=== PATIENT | female | born 1930 | race Caucasian/White ===

== ENCOUNTER → 2016-10-15 | Outpatient (CLI) | payer MEDICARE ==
--- NOTE | 2016-10-16 10:06 | MM ---
Reason for exam: screening (asymptomatic). Last mammogram was performed 1 year and 1 month ago. History: Patient is postmenopausal. Took estrogen for 24 years. Physical Findings: A clinical breast exam by your physician is recommended on an annual basis and results should be correlated with mammographic findings. MG 3D Screening Mammo W/Cad Bilateral CC and MLO view(s) were taken. Prior study comparison: September 20, 2015, bilateral MG screening mammo w CAD. September 18, 2014, bilateral MG screening mammo w CAD. The breast tissue is heterogeneously dense. This may lower the sensitivity of mammography. There is no discrete abnormality. No significant changes when compared with prior studies. ASSESSMENT: Negative, BI-RAD 1 RECOMMENDATION: Routine screening mammogram of both breasts in 1 year.
== END | disposition home or self-care (01) ==
LOC: RADMAMWWP 10:50
PROVIDERS: ATTEND Internal Medicine Geriatric Medicine
DX: Z12.31 Encounter for screening mammogram for malignant neoplasm of breast (principal)
CPT/HCPCS: 77063; G0202

== ENCOUNTER 2017-11-06 07:25 | Inpatient (IN) | payer MEDICARE ==
[2017-11-06] MEDS ORDERED: ONDANSETRON 4 MG/2 ML VIAL IVP STA (07:37)
[2017-11-06] MEDS ORDERED: ASPIRIN 81 MG PO STA (07:37)
[2017-11-06] MEDS ORDERED: SODIUM CHLORIDE 0.9% 500 ML IV ONE (07:38)
[2017-11-06] MEDS: METOPROLOL TARTRATE 5 MG/5 ML VIAL IVP PRN ×3 (07:46→08:12)
[2017-11-06 07:54] LABS: Basophils % (A) 0 %; Eosinophils # (A) 0.1 k/uL (0-0.7); Eosinophils % (A) 3 %; HCT 39.1 % (34.0-46.0); HGB 13.2 gm/dL (11.4-16.0); Lymphocytes % (A) 44 %; MCH 31.4 pg (25.0-35.0); MCHC 33.9 g/dL (31.0-37.0); MCV 92.6 fL (80.0-100.0); Monocytes # (A) 0.3 k/uL (0-1.0); Monocytes % (A) 6 %; Neutrophils % (A) 44 %; Platelet Count 198 k/uL (150-450); RBC 4.22 m/uL (3.80-5.40); RDW 12.6 % (11.5-15.5); WBC 4.6 k/uL (3.8-10.6)
[2017-11-06 08:06] LABS: ALT 23 U/L (9-52); AST 17 U/L (14-36); Albumin 3.7 g/dL (3.5-5.0); Alkaline Phosphatase 99 U/L (38-126); Anion Gap 14 mmol/L; Blood Urea Nitrogen 22 mg/dL (7-17); Calcium 8.9 mg/dL (8.4-10.2); Carbon Dioxide 25 mmol/L (22-30); Chloride 103 mmol/L (98-107); Glucose 115 mg/dL (74-99); Potassium 3.4 mmol/L (3.5-5.1); Sodium 142 mmol/L (137-145); Total Bilirubin 0.4 mg/dL (0.2-1.3); Total Protein 5.6 g/dL (6.3-8.2)
[2017-11-06 08:07] LABS: INR 1.5 (<1.2); Prothrombin Time 13.7 sec (9.0-12.0)
--- NOTE | 2017-11-06 08:08 | ED ---
Arrhythmia/Palpitations HPI - General Chief Complaint: Arrhythmia/Palpitations Stated Complaint: Arrhythmia Time Seen by Provider: 11/06/17 07:29 Source: patient, EMS Mode of arrival: EMS Limitations: no limitations - History of Present Illness Initial Comments: 87 years old female presents with palpitation , she does have a history of atrial fibrillation with RVR in the past, she is on Rythmol noticed some chest pressure this morning palpitation and shortness of breath, she denies any pleuritic chest pain she is on a Coumadin for atrial fibrillation and she stated she has used Cardizem in the past with success but Cardizem had dropped her blood pressure to 4 day. She stated she has been compliant with her medications. Denies any headaches no neck stiffness chest pressure was shortness of breath but no pleuritic chest pain no abdominal pain no frequency urgency dysuria no symptoms of TIA or CVA. Embolus crew noticed some runs of V. tach and I noticed some runs of V. tach O when she arrived in the ER - Related Data Home Medications Medication Instructions Recorded Confirmed Atorvastatin Calcium [Lipitor] 10 mg PO DAILY 02/15/14 12/04/15 Budesonide [Pulmicort Flexhaler] 2 puff INHALATION BID 02/15/14 12/04/15 Levothyroxine Sodium [Synthroid] 50 mcg PO DAILY 02/15/14 12/04/15 OMALIZUMAB patients own [Xolair 150 mg SQ DIRECTED 02/15/14 12/04/15 Patients Own] Omeprazole [PriLOSEC] 40 mg PO AC-BRKFST 02/15/14 12/04/15 Propafenone HCl [Propafenone HCl 225 mg PO TID 02/15/14 12/04/15 ER] Quinapril HCl [Accupril] 10 mg PO DAILY 02/15/14 12/04/15 Warfarin [Coumadin] 7.5 mg PO DAILY 02/15/14 12/04/15 Calcium Carbonate/Vitamin D3 1 each PO DAILY 11/27/15 12/04/15 [Calcium 600 + Vit D Tablet] Clindamycin HCl [Cleocin] 300 mg PO DIRECTED 11/27/15 12/04/15 Diazepam [Valium] 2 mg PO BID PRN 11/27/15 12/04/15 Docusate [Colace] 100 mg PO DAILY 11/27/15 12/04/15 Ergocalciferol [Vitamin D2] 50,000 unit PO Q7D 11/27/15 12/04/15 Famotidine [Pepcid] 20 mg PO DAILY 11/27/15 12/04/15 Fluticasone Nasal [place] [Flonase 2 spr EA NOSTRIL DAILY 11/27/15 12/04/15 Nasal [place]] Hydrochlorothiazide 25 mg PO DAILY 11/27/15 12/04/15 Montelukast [Singulair] 10 mg PO DAILY 11/27/15 12/04/15 Multivitamins, Thera [Multivitamin] 1 tab PO DAILY 11/27/15 12/04/15 Psyllium Husk (with Sugar) 6 gm PO BID 11/27/15 12/04/15 [Metamucil Powder] Allergies Allergy/AdvReac Type Severity Reaction Status Date / Time casein Allergy Unknown Verified 11/06/17 08:31 Penicillins Allergy Anaphylaxis Verified 11/06/17 08:31 epinephrine AdvReac Unknown Verified 11/06/17 08:31 erythromycin base AdvReac Nausea & Verified 11/06/17 08:31 Vomiting & Diarrhea lidocaine AdvReac Unknown Verified 11/06/17 08:31 Review of Systems ROS Statement: Those systems with pertinent positive or pertinent negative responses have been documented in the HPI. ROS Other: All systems not noted in ROS Statement are negative. Past Medical History Past Medical History: Atrial Fibrillation, Asthma, GERD/Reflux, Hypertension Additional Past Medical History / Comment(s): hypothyroid, retinal vein occlusion History of Any Multi-Drug Resistant Organisms: None Reported Past Surgical History: Appendectomy, Cholecystectomy, Hysterectomy, Orthopedic Surgery Additional Past Surgical History / Comment(s): thyroidectomy. Total hip replacement x 2, R hip, THR x 1 L hip Past Psychological History: No Psychological Hx Reported Smoking Status: Never smoker Past Alcohol Use History: None Reported Past Drug Use History: None Reported General Exam - General Exam Comments Initial Comments: General: The patient is awake and alert, she is hard of hearing, GCS is 15 Skin: Skin is warm and dry and no rashes or lesions are noted. Eye: Pupils are equal, round and reactive to light, extra-ocular movements are intact; there is normal conjunctiva bilaterally. Ears, nose, mouth and throat: There are moist mucous membranes and no oral lesions. Neck: The neck is supple, there is no tenderness him a no signs of meningitis Cardiovascular: There is atrial fibrillation with a fast ventricular rate of around 140. He was constantly fluctuating from 120-180 Respiratory: To auscultation bilateral, no wheezing no rhonchi no distress respiratory [place] noticed Gastrointestinal: Soft, non-distended, non-tender abdomen without masses or organomegaly noted. There is no rebound or guarding present. Bowel sounds are unremarkable. Back: There is no tenderness to palpation in the midline. There is no obvious deformity. Musculoskeletal: Normal ROM, no tenderness, There is no pedal edema. There is no calf tenderness or swelling. No cords were appreciated. Neurological: CN II-XII intact, Cranial nerves III through XII are intact. There are no obvious motor or sensory deficits. Coordination appears grossly intact. Speech is normal. Psychiatric: Cooperative, appropriate mood & affect, normal judgment. Limitations: no limitations Course Vital Signs 11/06/17 11/06/17 07:42 07:54 Temperature 97.6 F Pulse Rate 151 H Pulse Rate [ 156 H [employer] ] Respiratory 18 Rate Blood Pressure 154/84 O2 Sat by Pulse 98 Oximetry EKG Findings - EKG Comments: EKG Findings:: EKG is atrial fibrillation with rapid RVR with a premature ventricular beats or it could be aberrant conduction, ventricular rate is 144 QRS duration is 82 QT/QTc is 314/486 noticed a run of V. tach or aberrant conduction in lead 2 and lead 3 Medical Decision Making - Lab Data Result diagrams: 11/06/17 07:40 11/06/17 07:40 Lab Results 11/06/17 11/06/17 11/06/17 Range/Units 07:40 07:40 07:40 WBC 4.6 (3.8-10.6) k/uL RBC 4.22 (3.80-5.40) m/uL Hgb 13.2 (11.4-16.0) gm/dL Hct 39.1 (34.0-46.0) % MCV 92.6 (80.0-100.0) fL MCH 31.4 (25.0-35.0) pg MCHC 33.9 (31.0-37.0) g/dL RDW 12.6 (11.5-15.5) % Plt Count 198 (150-450) k/uL Neutrophils % 44 % Lymphocytes % 44 % Monocytes % 6 % Eosinophils % 3 % Basophils % 0 % Neutrophils # 2.0 (1.3-7.7) k/uL Lymphocytes # 2.0 (1.0-4.8) k/uL Monocytes # 0.3 (0-1.0) k/uL Eosinophils # 0.1 (0-0.7) k/uL Basophils # 0.0 (0-0.2) k/uL PT (9.0-12.0) sec INR (<1.2) APTT (22.0-30.0) sec Sodium 142 (137-145) mmol/L Potassium 3.4 L (3.5-5.1) mmol/L Chloride 103 (98-107) mmol/L Carbon Dioxide 25 (22-30) mmol/L Anion Gap 14 mmol/L BUN 22 H (7-17) mg/dL Creatinine 0.64 (0.52-1.04) mg/dL Est GFR (CKD-EPI)AfAm >90 (>60 ml/min/1.73 sqM) Est GFR (CKD-EPI)NonAf 82 (>60 ml/min/1.73 sqM) Glucose 115 H (74-99) mg/dL Calcium 8.9 (8.4-10.2) mg/dL Magnesium 2.0 (1.6-2.3) mg/dL Total Bilirubin 0.4 (0.2-1.3) mg/dL AST 17 (14-36) U/L ALT 23 (9-52) U/L Alkaline Phosphatase 99 (38-126) U/L Total Creatine Kinase 56 (30-135) U/L CK-MB (CK-2) 1.3 (0.0-2.4) ng/mL CK-MB (CK-2) Rel Index 2.3 Troponin I <0.012 (0.000-0.034) ng/mL Total Protein 5.6 L (6.3-8.2) g/dL Albumin 3.7 (3.5-5.0) g/dL 11/06/17 Range/Units 07:40 WBC (3.8-10.6) k/uL RBC (3.80-5.40) m/uL Hgb (11.4-16.0) gm/dL Hct (34.0-46.0) % MCV (80.0-100.0) fL MCH (25.0-35.0) pg MCHC (31.0-37.0) g/dL RDW (11.5-15.5) % Plt Count (150-450) k/uL Neutrophils % % Lymphocytes % % Monocytes % % Eosinophils % % Basophils % % Neutrophils # (1.3-7.7) k/uL Lymphocytes # (1.0-4.8) k/uL Monocytes # (0-1.0) k/uL Eosinophils # (0-0.7) k/uL Basophils # (0-0.2) k/uL PT 13.7 H (9.0-12.0) sec INR 1.5 H (<1.2) APTT 25.0 (22.0-30.0) sec Sodium (137-145) mmol/L Potassium (3.5-5.1) mmol/L Chloride (98-107) mmol/L Carbon Dioxide (22-30) mmol/L Anion Gap mmol/L BUN (7-17) mg/dL Creatinine (0.52-1.04) mg/dL Est GFR (CKD-EPI)AfAm (>60 ml/min/1.73 sqM) Est GFR (CKD-EPI)NonAf (>60 ml/min/1.73 sqM) Glucose (74-99) mg/dL Calcium (8.4-10.2) mg/dL Magnesium (1.6-2.3) mg/dL Total Bilirubin (0.2-1.3) mg/dL AST (14-36) U/L ALT (9-52) U/L Alkaline Phosphatase (38-126) U/L Total Creatine Kinase (30-135) U/L CK-MB (CK-2) (0.0-2.4) ng/mL CK-MB (CK-2) Rel Index Troponin I (0.000-0.034) ng/mL Total Protein (6.3-8.2) g/dL Albumin (3.5-5.0) g/dL Critical Care Time Total Critical Care Time: 60 Critical Care Time: Patient came in with a heart rate of 150, there were runs of V. tach and she had a chest pressure we immediately put on monitor IV metoprolol was done 3 times, heart rate has come down to 1:15 and there are no V. tach so this point just narrow complex ER chest pressure has resolved she was also given some aspirin we can heparinize her because she is on a Coumadin fluid bolus was done since she dropped her blood pressure most time she had a Cardizem drip for her A. fib with RVR once we saw the chest x-ray she was given a small dose of Lasix considering her creatinine is quite and now potassium by mouth was given as well because her potassium is 3.4 though is not very low but IV potassium will aggravate the hypokalemia. Second EKG is atrial fibrillation with the RVR ventricular rate is 1:15 QRS duration is 92 QT/QTC 352/480 segs and aVF this EKG does not reveal any ST elevation or ST depression noticed some artifacts in V6. I spoke with the Dr. Howard he agrees that she are to go to ICU considering a run of V. tach then now spoke with the Dr. Gonzalez, she is the assistant teaching professor and this case she agrees to resume the care in ICU. All this was discussed with the patient and the family Disposition Clinical Impression: Atrial fibrillation with RVR, Congestive heart failure, Hypokalemia, Ventricular tachycardia Disposition: ADMITTED IP TO THIS HOSP Condition: Good Referrals: Justin Montoya MD [Primary Care Provider] - 1-2 days
--- NOTE | 2017-11-06 08:13 | XR ---
EXAMINATION TYPE: XR chest 1V DATE OF EXAM: 11/06/2017 COMPARISON: Chest x-ray April 04, 2013 HISTORY: History of atrial fibrillation presents with chest pain. TECHNIQUE: Single AP portable frontal view of the chest is obtained. FINDINGS: There are reticular interstitial changes bilaterally increased in prominence from prior st udy. [place] increased suspect new small left pleural effusion with blunting of left lateral costophreni c angle. No suspicious focal airspace opacity or pneumothorax is seen. New central vascular congestio n however is present. The cardiac silhouette size is stable and upper limits of normal. The osseou s structures are demineralized. Cholecystectomy clips are redemonstrated. Overlying EKG wires are not ed. IMPRESSION: Background chronic interstitial changes or fibrosis, there is new central vascular conge stion and small left likely bilateral pleural effusions, correlate for fluid overload state or CHF ex acerbation.
[2017-11-06 08:15] LABS: Creatine Kinase 56 U/L (30-135)
[2017-11-06 08:27] LABS: Creatine Kinase MB 1.3 ng/mL (0.0-2.4); Troponin I <0.012 ng/mL (0.000-0.034)
[2017-11-06] MEDS ORDERED: FUROSEMIDE 10 MG/ML 2 ML VIAL IV STA (08:30)
[2017-11-06] MEDS ORDERED: POTASSIUM BICARBONATE/CIT AC 20 MEQ TABLET.EFF PO ONE (08:30)
[2017-11-06] MEDS ORDERED: NALOXONE 0.4 MG/ML 1 ML VIAL IV PRN (08:43)
[2017-11-06] MEDS ORDERED: MORPHINE SULFATE 4 MG/ML SYRINGE IV PRN (08:43)
[2017-11-06] MEDS ORDERED: ALBUTEROL NEBULIZED 2.5 MG/3 ML INHALATION PRN (08:52)
[2017-11-06] MEDS ORDERED: DIAZEPAM 2 MG TAB PO PRN (08:52)
[2017-11-06] MEDS ORDERED: BACLOFEN 10 MG TAB PO PRN (08:52)
[2017-11-06] MEDS ORDERED: METOPROLOL TARTRATE 25 MG TAB PO STA (08:54)
[2017-11-06] MEDS ORDERED: DOCUSATE 100 MG CAP PO SCH (09:00)
[2017-11-06] MEDS ORDERED: OMALIZUMAB 150 MG SQ SCH (09:00)
[2017-11-06] MEDS ORDERED: ATORVASTATIN 10 MG TAB PO SCH (09:00)
[2017-11-06] MEDS ORDERED: PROPAFENONE 225 MG TAB PO SCH (09:00)
[2017-11-06] MEDS ORDERED: NON-FORMULARY DRUG (Clindamycin Hcl [Cleocin] 300 MG) PO SCH (09:00)
[2017-11-06] MEDS: MONTELUKAST 10 MG TAB PO SCH ×3 (09:00→21:32)
[2017-11-06] MEDS ORDERED: POTASSIUM CHLORIDE 10 MEQ in WATER FOR INJECTION 1 100ML.BAG IVPB STA (09:14)
--- NOTE | 2017-11-06 09:44 | CONS ---
CONSULTATION Mrs. Hagan is an 87-year-old female who is seen in the emergency room for atrial fibrillation with a rapid ventricular response. This patient has a past history of atrial fibrillation for several years and usually it is of paroxysmal and subsides by itself. Patient started having atrial fibrillation since about 3 o'clock in the morning. It initially felt like it was heartburn and she felt that her heart was beating rapid and she was slightly short of breath. Patient came to the emergency room. In the emergency room, this patient was in a moderately rapid ventricular response. The patient potassium was 3.4. On the EKG there was one episode of nonsustained wide QRS complex tachycardia. Patient denies any chest pain and denies any past history of prior myocardial infarction or any significant heart failure. Patient has a history of hypertension, denies any history of diabetes. Patient denies any history of strokes. She usually takes her Coumadin and checks her regularly. Patient's physical activities are limited but she does move around in the house. PAST MEDICAL HISTORY: Includes history of paroxysmal atrial fibrillation and history of hypertension. MEDICATIONS: Please review the chart. Patient has been taking Rythmol 3 times a day. PHYSICAL EXAMINATION: At present reveals an 87-year-old female who does not appear to be in any acute distress. Patient's heart rate is 85 per minute. HEENT examination is negative. Neck is supple. There is no increase in jugular venous pressure. Both the carotid pulses are felt. There is no bruit. Chest is symmetrical. Heart, the PMI is not felt. First and second heart sounds are normal. Lungs reveal a few basal rales. Abdomen is soft. Extremities, peripheral pulsations are not well felt. Chest x-ray suggestive of mild heart failure. Patient's potassium was 3.4, patient just converted to the normal sinus rhythm. FINAL IMPRESSION: 1. This patient came with atrial fibrillation with rapid ventricular response. Patient has been having on and off episodes of atrial fibrillation with RVR. Usually his disease being maintained in the normal sinus rhythm. 2. History of hypertension. RECOMMENDATIONS: We will recommend to continue that the patient been on the beta celia. We will obtain echo and Doppler study to assess the left ventricular systolic function. If the left ventricular systolic function is impaired, we may need to discontinue the Rythmol in view of the episodes of the ventricular tachycardia. We will also correct the patient's potassium. MMODL / IJN: [id number] /
--- NOTE | 2017-11-06 10:13 | P.CNPUL ---
<Danielle Ramires E - Last Filed: 11/06/17 09:53> History of Present Illness Consult date: 11/06/17 Requesting physician: Sai Overton Reason for consult: abnormal CXR/CT Chief complaint: shortness of breath/chest palpitations History of present illness: This is an 87-year-old female patient being seen examined and evaluated today on rounds. She is well-known to our services. The patient came into the emergency department via EMS with complaints of chest pressure and palpitations. Patient was noted to have atrial fibrillation with rapid ventricular response. Of note she did have a few short runs of V. tach in the EMS as well as in the emergency department. Patient was worked up in the emergency room and was found to have a potassium of 3.4. Her troponins were negative. She is currently on Coumadin and her INR is subtherapeutic at 1.5. Chest x-ray was reviewed and does show chronic interstitial changes and fibrosis with new central vascular congestion and small bilateral effusions correlate for fluid overload or CHF. The patient was given IV metoprolol potassium replacement and IV Lasix and has been responding well. Currently the patient is in A. fib with a controlled response. Cardiology is on consult. Patient will go for an echocardiogram. The patient is a nonsmoker and has a known history of ALLERGIC asthma and is on Xolair injections and is due next week. Upon examination the patient's resting up in bed on 2 L of supplemental oxygen via nasal cannula. She denies any current shortness of breath cough or congestion. All labs and reports have been reviewed. Review of Systems 14 point review of systems was completed and is negative unless noted above in the HPI. 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 History of Any Multi-Drug Resistant Organisms: None Reported Past Surgical History: Adenoidectomy, Appendectomy, Cholecystectomy, Hysterectomy, Joint Replacement, Tonsillectomy Additional Past Surgical History / Comment(s): Total R hip replacement x2, total L hip replacement, colonoscopies, BSO, cystocele/rectocele, thyroidectomy d/t benign nodule, bilateral cataract removals and RK bilaterally. Past Anesthesia/Blood Transfusion Reactions: No Reported Reaction Past Psychological History: No Psychological Hx Reported Additional Psychological History / Comment(s): Pt states she is a worrier. Pt resides at home with her spouse who is unwell. She ambulates with a walker. She no longer drives. She has a very supportive family who are around on a daily basis and very helpful. Smoking Status: Former smoker Past Alcohol Use History: None Reported Past Drug Use History: None Reported - Past Family History Father Family Medical History: Congestive Heart Failure (CHF) Additional Family Medical History / Comment(s): Father lived to be 95.5 yrs old. Mother Family Medical History: Congestive Heart Failure (CHF), CVA/TIA, Musculoskeletal Disorder, Neurologic Disorder, Pneumonia Additional Family Medical History / Comment(s): Mother had TIAs and parkinsons. She lived to be 86 yrs old. Medications and Allergies Home Medications Medication Instructions Recorded Confirmed Type Atorvastatin Calcium [Lipitor] 10 mg PO DAILY 02/15/14 11/06/17 History Budesonide [Pulmicort Flexhaler] 2 puff INHALATION RT-BID 02/15/14 11/06/17 History Levothyroxine Sodium [Synthroid] 50 mcg PO DAILY 02/15/14 11/06/17 History OMALIZUMAB patients own [Xolair 150 mg SQ Q30D 02/15/14 11/06/17 History Patients Own] Omeprazole [PriLOSEC] 40 mg PO AC-BRKFST 02/15/14 11/06/17 History Propafenone HCl [Propafenone HCl 225 mg PO TID 02/15/14 11/06/17 History ER] Quinapril HCl [Accupril] 10 mg PO DAILY 02/15/14 11/06/17 History Warfarin [Coumadin] 7.5 mg PO SUTUTHSA 02/15/14 11/06/17 History Calcium Carbonate/Vitamin D3 1 tab PO DAILY 11/27/15 11/06/17 History [Calcium 600 + Vit D Tablet] Clindamycin HCl [Cleocin] 300 mg PO DIRECTED 11/27/15 11/06/17 History Diazepam [Valium] 2 mg PO BID PRN 11/27/15 11/06/17 History Docusate [Colace] 100 mg PO DAILY 11/27/15 11/06/17 History Ergocalciferol [Vitamin D2] 50,000 unit PO Q14D 11/27/15 11/06/17 History Famotidine [Pepcid] 20 mg PO DAILY 11/27/15 11/06/17 History Fluticasone Nasal [place] [Flonase 2 spr EA NOSTRIL DAILY 11/27/15 11/06/17 History Nasal [place]] Hydrochlorothiazide 25 mg PO DAILY 11/27/15 11/06/17 History Montelukast [Singulair] 10 mg PO DAILY 11/27/15 11/06/17 History Multivitamins, Thera [Multivitamin] 1 tab PO DAILY 11/27/15 11/06/17 History Psyllium Husk (with Sugar) 6 gm PO BID 11/27/15 11/06/17 History [Metamucil Powder] Baclofen [Lioresal] 10 mg PO TID PRN 11/06/17 11/06/17 History Gabapentin [Neurontin] 100 mg PO BID 11/06/17 11/06/17 History HYDROcodone/APAP 5-325MG [[place] 1 tab PO Q6HR PRN 11/06/17 11/06/17 History 5-325] Levalbuterol Hfa Inhaler [Xopenex 1 puff INHALATION Q6HR PRN 11/06/17 11/06/17 History Hfa Inhaler] Warfarin Sodium [Coumadin] 5 mg PO MOWEFR 11/06/17 11/06/17 History Allergies Allergy/AdvReac Type Severity Reaction Status Date / Time casein Allergy Unknown Verified 11/06/17 08:31 Penicillins Allergy Anaphylaxis Verified 11/06/17 08:31 epinephrine AdvReac Unknown Verified 11/06/17 08:31 erythromycin base AdvReac Nausea & Verified 11/06/17 08:31 Vomiting & Diarrhea lidocaine AdvReac Unknown Verified 11/06/17 08:31 Physical Exam Vitals: Vital Signs Temp Pulse Pulse Resp BP Pulse Ox 11/06/17 09:45 84 16 165/79 99 11/06/17 08:44 118 H 16 122/70 98 11/06/17 07:54 156 H 11/06/17 07:42 97.6 F 151 H 18 154/84 98 Intake and Output 11/05/17 11/06/17 11/06/17 22:59 06:59 14:59 Other: Weight 68.039 kg GENERAL EXAM: Alert, active, comfortable in no apparent distress. HEAD: Normocephalic. EYES: Normal reaction of pupils, equal size. NOSE: Clear with pink turbinates. THROAT: No erythema or exudates. NECK: No masses, no JVD. CHEST: No chest wall deformity. LUNGS: Equal air entry with no crackles, wheeze, rhonchi or dullness. Bases diminished CVS: S1 and S2 normal with no audible mumurs, regular rhythm. ABDOMEN: No hepatosplenomegaly, normal bowel sounds, no guarding or rigidity. EXTREMITIES: Chronic trace edema noted to right lower extremity, no edema to left lower extremity, pedal pulses palpable. CENTRAL NERVOUS SYSTEM: No focal deficits, tone is normal in all 4 extremities. Results - Laboratory Findings CBC and BMP: 11/06/17 07:40 11/06/17 07:40 PT/INR, D-dimer PT 13.7 sec (9.0-12.0) H 11/06/17 07:40 INR 1.5 (<1.2) H 11/06/17 07:40 Abnormal lab findings: Abnormal Labs 11/06/17 11/06/17 07:40 07:40 PT 13.7 H INR 1.5 H Potassium 3.4 L BUN 22 H Glucose 115 H Total Protein 5.6 L - Diagnostic Findings Chest x-ray: report reviewed, image reviewed Assessment and Plan Assessment: Assessment Atrial fibrillation with rapid ventricular response Episodes of non-sustained V. tach Fluid overload with small bilateral pleural effusions Hypokalemia History of hypertension History of chronic moderate to severe persistent asthma, stable Plan Medications have been reviewed and will be continued as ordered. We will schedule Lasix 40 mg twice a day. Add Xopenex nebulizer treatments as needed. Continue with pulmonary hygiene, coughing and deep breathing exercises, and supportive care. Supplemental oxygen to maintain oxygen saturations of 92% or better. Continue nebulizer treatments. Cardiology also on consult and appreciate recommendations. Anticoagulation per cardiology. BNP pending. Echocardiogram pending. Continue to monitor and replace electrolytes per protocol. GI and DVT prophylaxis. We will continue to monitor labs/results and adjust treatment as necessary. Further recommendations pending. I performed an examination of the patient and discussed their management with the nurse practitioner. I have reviewed the nurse practitioner's note and agree with the documented findings and plan of care. <Sabrina Gonzalez A - Last Filed: 11/06/17 10:30> Physical Exam Osteopathic Statement: *. No significant issues noted on an osteopathic structural exam other than those noted in the History and Physical/Consult. Vitals: Vital Signs Temp Pulse Pulse Resp BP Pulse Ox 11/06/17 09:45 84 16 165/79 99 11/06/17 08:44 118 H 16 122/70 98 11/06/17 07:54 156 H 11/06/17 07:42 97.6 F 151 H 18 154/84 98 Intake and Output 11/05/17 11/06/17 11/06/17 22:59 06:59 14:59 Other: Weight 68.039 kg Results - Laboratory Findings CBC and BMP: 11/06/17 07:40 11/06/17 07:40 PT/INR, D-dimer PT 13.7 sec (9.0-12.0) H 11/06/17 07:40 INR 1.5 (<1.2) H 11/06/17 07:40 Abnormal lab findings: Abnormal Labs 11/06/17 11/06/17 07:40 07:40 PT 13.7 H INR 1.5 H Potassium 3.4 L BUN 22 H Glucose 115 H Total Protein 5.6 L Assessment and Plan Assessment: Patient seen and examined in the emergency department. The patient states she is feeling better overall. Her heart rate is better controlled. She states the palpitations have resolved. She denies any shortness of breath. She is currently 99% on 2 L nasal cannula. Anticoagulation per cardiology. Rate control per cardiology. Continue home breathing treatments. Will put the patient on as needed Xopenex due to cardiac issues. GI and DVT prophylaxis. Echocardiogram pending. Patient will be monitored in the intensive care unit due to episodes of V. tach. Thank you for this consultation we'll continue to follow along. ~Sbarina Gonzalez DO
[2017-11-06] MEDS: LEVOTHYROXINE 50 MCG TAB PO SCH (10:27)
[2017-11-06] MEDS: GABAPENTIN 100 MG CAP PO SCH ×2 (10:28→21:32)
[2017-11-06] MEDS: MULTIVITAMINS, THERA 1 EACH TAB PO SCH (10:28)
[2017-11-06] MEDS: PSYLLIUM HUSK 100% 6 GM PACKET PO SCH ×2 (10:29→21:32)
[2017-11-06] MEDS: LISINOPRIL 10 MG TAB PO SCH (10:29)
[2017-11-06] MEDS: FAMOTIDINE 20 MG TAB PO SCH (10:29)
[2017-11-06] MEDS: HYDROCHLOROTHIAZIDE 25 MG TAB PO SCH (10:29)
[2017-11-06] MEDS: CALCIUM CARB-VIT D 500MG-200UN 1 EACH TAB PO SCH (10:30)
[2017-11-06] MEDS: FLUTICASONE 50MCG/SPRAY NASAL 16GM EA NOSTRIL SCH (10:36)
[2017-11-06 11:23] LABS: Glucose,Whole Blood 111 mg/dL (75-99)
--- NOTE | 2017-11-06 13:54 | P.HPIM ---
History of Present Illness H&P Date: 11/06/17 Chief Complaint: Palpitations This is an 87-year-old female patient of Dr. Montoya with past medical history of chronic atrial fibrillation, mild intermittent asthma, hypertension, osteoporosis s/p vertebral stress fractures, osteoarthritis, patient stated that she was in her usual state of health about 2 weeks ago when she was placed on calcitonin nasal spray for acidosis treatment because of significant disease and vertebra fracture, and developed to have significant diarrhea and she had stopped that about a week ago, as well as fact she went to see her prior to her physician Dr. Montoya yesterday for a physical and the patient was doing fine patient came in to the emergency department at [facility] because she woke up in the morning and she was complaining of increased palpitation in her chest and she was feeling somewhat short of breath along with the heartburn that did not respond to Mylanta so EMS was called and the patient was brought to the hospital on drop to the hospital patient had an episode of V. tach that terminated on its own she was seen in the ER potassium was low at 3.4 she was replaced magnesium was normal, as of her presentation she was admitted to the hospital after she did receive 2 doses of beta celia and cardiology consultation as well as pulmonary consultation was obtained, patient was admitted to intensive care unit for observation for the next 24 hours because of recurrent V. tach. Review of Systems Constitutional: Reports weakness, Denies chills, Denies chronic headaches, Denies lethargy, Denies weight gain, Denies weight loss Eyes: denies blurred vision, denies bulging eye, denies decreased vision, denies diplopia Ears: deny: decreased hearing Ears, nose, mouth and throat: Denies dysphagia, Denies neck lump, Denies sore throat Cardiovascular: Reports decreased exercise tolerance, Reports dyspnea on exertion, Reports high blood pressure, Reports irregular heart beat, Reports rapid heart beat, Reports shortness of breath, Denies chest pain, Denies palpitations, Denies syncope Respiratory: Denies congestion, Denies cough with sputum, Denies home oxygen, Denies sleep apnea, Denies snoring, Denies wheezing Gastrointestinal: Denies abdominal pain, Denies BRBPR, Denies excessive gas, Denies heartburn, Denies melena, Denies nausea, Denies vomiting Genitourinary: Denies dysuria Musculoskeletal: Denies myalgias Musculoskeletal: absent: ankle pain, ankle stiffness, ankle swelling, elbow pain , elbow stiffness, elbow swelling, foot pain, foot stiffness, foot swelling, hand pain, hand stiffness, hand swelling, hip pain, hip stiffness, hip swelling , knee pain, knee stiffness, knee swelling, shoulder pain, shoulder stiffness, shoulder swelling, wrist pain, wrist stiffness, wrist swelling Integumentary: Denies pruritus, Denies rash Neurological: Denies numbness, Denies weakness Psychiatric: Denies anxiety, Denies depression Endocrine: Denies fatigue, Denies weight change Past Medical History Past Medical History: Atrial Fibrillation, Asthma, Eye Disorder, GERD/Reflux, Hyperlipidemia, Hypertension, Musculoskeletal Disorder, Osteoarthritis (OA), Pneumonia Additional Past Medical History / Comment(s): AFib with RVR in the past, cardiac valve abnormality, R eye retinal occlusion, chronic back pain, current vertebral stress fractures, T9-10 and lumbar and has had past T stress fractures , anemia-has had iron infusions in past, arthritis bilateral shoulders, osteoporosis, sinus problems, 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 History of Any Multi-Drug Resistant Organisms: None Reported Past Surgical History: Adenoidectomy, Appendectomy, Cholecystectomy, Hysterectomy, Joint Replacement, Tonsillectomy Additional Past Surgical History / Comment(s): Total R hip replacement x2, total L hip replacement, colonoscopies, BSO, cystocele/rectocele, thyroidectomy d/t benign nodule, bilateral cataract removals and RK bilaterally. Past Anesthesia/Blood Transfusion Reactions: No Reported Reaction Past Psychological History: No Psychological Hx Reported Additional Psychological History / Comment(s): Pt states she is a worrier. Pt resides at home with her spouse who is unwell. She ambulates with a walker. She no longer drives. She has a very supportive family who are around on a daily basis and very helpful. Smoking Status: Former smoker Past Alcohol Use History: None Reported Additional Past Alcohol Use History / Comment(s): Patient was a smoker, quarter pack per day and quit in 1990. No illicit drug use. No alcohol use. She lives at home with her . She ambulates with a walker. She no longer drives. She has supportive family who are available daily. Past Drug Use History: None Reported - Past Family History Father Family Medical History: Congestive Heart Failure (CHF) Additional Family Medical History / Comment(s): Father at age 95.5 from heart failure. Mother Family Medical History: Congestive Heart Failure (CHF), CVA/TIA, Musculoskeletal Disorder, Neurologic Disorder, Pneumonia Additional Family Medical History / Comment(s): Mother had TIAs and parkinsons. She lived to be 86 yrs old. Daughter(s) Additional Family Medical History / Comment(s): Patient is an only child. No brothers or sisters. Patient has 3 children with no major medical problems. Medications and Allergies Home Medications Medication Instructions Recorded Confirmed Type Atorvastatin Calcium [Lipitor] 10 mg PO DAILY 02/15/14 11/06/17 History Budesonide [Pulmicort Flexhaler] 2 puff INHALATION RT-BID 02/15/14 11/06/17 History Levothyroxine Sodium [Synthroid] 50 mcg PO DAILY 02/15/14 11/06/17 History OMALIZUMAB patients own [Xolair 150 mg SQ Q30D 02/15/14 11/06/17 History Patients Own] Omeprazole [PriLOSEC] 40 mg PO AC-BRKFST 02/15/14 11/06/17 History Propafenone HCl [Propafenone HCl 225 mg PO TID 02/15/14 11/06/17 History ER] Quinapril HCl [Accupril] 10 mg PO DAILY 02/15/14 11/06/17 History Warfarin [Coumadin] 7.5 mg PO SUTUTHSA 02/15/14 11/06/17 History Calcium Carbonate/Vitamin D3 1 tab PO DAILY 11/27/15 11/06/17 History [Calcium 600 + Vit D Tablet] Clindamycin HCl [Cleocin] 300 mg PO DIRECTED 11/27/15 11/06/17 History Diazepam [Valium] 2 mg PO BID PRN 11/27/15 11/06/17 History Docusate [Colace] 100 mg PO DAILY 11/27/15 11/06/17 History Ergocalciferol [Vitamin D2] 50,000 unit PO Q14D 11/27/15 11/06/17 History Famotidine [Pepcid] 20 mg PO DAILY 11/27/15 11/06/17 History Fluticasone Nasal [place] [Flonase 2 spr EA NOSTRIL DAILY 11/27/15 11/06/17 History Nasal [place]] Hydrochlorothiazide 25 mg PO DAILY 11/27/15 11/06/17 History Montelukast [Singulair] 10 mg PO DAILY 11/27/15 11/06/17 History Multivitamins, Thera [Multivitamin] 1 tab PO DAILY 11/27/15 11/06/17 History Psyllium Husk (with Sugar) 6 gm PO BID 11/27/15 11/06/17 History [Metamucil Powder] Baclofen [Lioresal] 10 mg PO TID PRN 11/06/17 11/06/17 History Gabapentin [Neurontin] 100 mg PO BID 11/06/17 11/06/17 History HYDROcodone/APAP 5-325MG [[place] 1 tab PO Q6HR PRN 11/06/17 11/06/17 History 5-325] Levalbuterol Hfa Inhaler [Xopenex 1 puff INHALATION Q6HR PRN 11/06/17 11/06/17 History Hfa Inhaler] Warfarin Sodium [Coumadin] 5 mg PO MOWEFR 11/06/17 11/06/17 History Allergies Allergy/AdvReac Type Severity Reaction Status Date / Time casein Allergy Unknown Verified 11/06/17 08:31 Penicillins Allergy Anaphylaxis Verified 11/06/17 08:31 epinephrine AdvReac Unknown Verified 11/06/17 08:31 erythromycin base AdvReac Nausea & Verified 11/06/17 08:31 Vomiting & Diarrhea lidocaine AdvReac Unknown Verified 11/06/17 08:31 Physical Exam Vitals: Vital Signs Temp Pulse Pulse Resp BP Pulse Ox 11/06/17 10:42 80 16 147/95 98 11/06/17 09:45 84 16 165/79 99 11/06/17 08:44 118 H 16 122/70 98 11/06/17 07:54 156 H 11/06/17 07:42 97.6 F 151 H 18 154/84 98 Intake and Output 11/05/17 11/06/17 11/06/17 22:59 06:59 14:59 Other: Weight 68.039 kg - Constitutional General appearance: average body habitus, no acute distress - EENT Eyes: anicteric sclerae, EOMI, PERRLA, no ptosis, no scleral icterus, normal appearance ENT: hearing grossly normal, NA/AT, no normal oropharynx, no thrush, no tonsillar exudates Ears: bilateral: normal - Neck Neck: no lymphadenopathy, normal ROM, no rigidity, no stridor, no thyromegaly Carotids: bilateral: upstroke normal Thyroid: bilateral: normal size - Respiratory Respiratory: bilateral: diminished, negative: dullness, rales, rhonchi, wheezing , prolonged expiration - Cardiovascular Rhythm: regular Heart sounds: normal: S1, S2 Abnormal Heart Sounds: systolic murmur, no S3 Gallop - Gastrointestinal General gastrointestinal: normal bowel sounds, soft, no splenomegaly, no tenderness, no umbilical hernia - Integumentary Integumentary: normal, normal turgor - Neurologic Neurologic: CNII-XII intact - Musculoskeletal Musculoskeletal: strength equal bilaterally - Psychiatric Psychiatric: A&O x's 3, appropriate affect, intact judgment & insight Results CBC & Chem 7: 11/06/17 07:40 11/06/17 07:40 Labs: Abnormal Lab Results - Last 24 Hours (Table) 11/06/17 11/06/17 11/06/17 Range/Units 07:40 07:40 11:22 PT 13.7 H (9.0-12.0) sec INR 1.5 H (<1.2) Potassium 3.4 L (3.5-5.1) mmol/L BUN 22 H (7-17) mg/dL Glucose 115 H (74-99) mg/dL POC Glucose (mg/dL) 111 H (75-99) mg/dL Total Protein 5.6 L (6.3-8.2) g/dL Thrombosis Risk Factor Assmnt - DVT/VTE Prophylaxis DVT/VTE Prophylaxis: Pharmacologic Prophylaxis ordered, Mechanical Prophylaxis ordered - Choose All That Apply Any of the Below Risk Factors Present?: Yes Each Factor Represents 1 point: Heart failure (<1month), Obesity (BMI >25) Other Risk Factors: Yes Each Risk Factor Represents 3 Points: Age 75 years or older Other congenital or acquired thrombophilia - If yes, enter type in comment: No Thrombosis Risk Factor Assessment Total Risk Factor Score: 5 Thrombosis Risk Factor Assessment Level: High Risk Assessment and Plan Assessment: Assessment and plan: 1. Recurrent V. tach. Resolved thought to be due to electrolyte imbalance, echocardiogram was ordered, continue patient on metoprolol 25 mg orally twice every day, obtain cardiac consultation, continue to monitor the patient magnesium as well as potassium level over the next 24 hours, keep in the ICU for the next 24 hours. 2. Paroxysmal atrial fibrillation currently in sinus rhythm continue patient on propafenone 225 mg orally 3 times every day as well as Coumadin keep INR between 2-3. 3. Hypertension and hypertensive cardiovascular disease. Continue patient on metoprolol 25 mg orally twice every day. 4. History of mild persistent asthma. Continue patient on singular 10 mg orally once every day as well as albuterol as needed, continue Pulmicort nebulization twice every day. 5. Hyperlipidemia. Continue patient on Lipitor 10 mg orally once every day. 6. GERD. Continue Protonix 40 mg orally once every day. 7. DVT prophylaxis. Continue Coumadin keep her INR 2-3. 8. GI prophylaxis. Continue patient on Protonix. 9. Osteoporosis. Start Miacalcin and try to get the patient on Prolia injection twice a year. 10. Full code. 11. Admitted to inpatient. Estimate length of stay 2 midnights.
[2017-11-06] MEDS ORDERED: Potassium Replacement Protocol 1 EACH MISC MISCELLANE PRN (17:29)
[2017-11-06] MEDS ORDERED: WARFARIN 5 MG TAB PO SCH (18:00)
[2017-11-06] MEDS ORDERED: POTASSIUM CHLORIDE ER 20 MEQ TAB.ER PO SCH (18:00)
[2017-11-06] MEDS: BUDESONIDE 0.5 MG/2 ML NEBU INHALATION SCH (19:21)
[2017-11-06 19:38] LABS: Hemoglobin A1C 5.5 % (4.0-6.0)
[2017-11-06] MEDS ORDERED: AMIODARONE 200 MG TAB PO SCH (21:00)
[2017-11-06] MEDS: METOPROLOL TARTRATE 25 MG TAB PO SCH (21:32)
[2017-11-06] MEDS: FUROSEMIDE 10 MG/ML 4 ML VIAL IV SCH (21:32)
[2017-11-06] MEDS: AMIODARONE 200 MG TAB PO SCH (21:32)
[2017-11-06] MEDS: ATORVASTATIN 10 MG TAB PO SCH (21:33)
[2017-11-07 06:00] LABS: Basophils % (A) 0 %; Eosinophils # (A) 0.1 k/uL (0-0.7); Eosinophils % (A) 1 %; HCT 37.8 % (34.0-46.0); HGB 12.5 gm/dL (11.4-16.0); Lymphocytes # (A) 2.1 k/uL (1.0-4.8); Lymphocytes % (A) 40 %; MCH 31.3 pg (25.0-35.0); MCV 94.9 fL (80.0-100.0); Mean Platelet Volume 8.5; Monocytes # (A) 0.4 k/uL (0-1.0); Monocytes % (A) 8 %; Neutrophils # (A) 2.5 k/uL (1.3-7.7); Neutrophils % (A) 47 %; Platelet Count 166 k/uL (150-450); RBC 3.98 m/uL (3.80-5.40); RDW 12.6 % (11.5-15.5); WBC 5.3 k/uL (3.8-10.6)
[2017-11-07 06:09] LABS: INR 1.7 (<1.2); Prothrombin Time 15.3 sec (9.0-12.0)
[2017-11-07 06:33] LABS: ALT 17 U/L (9-52); AST 16 U/L (14-36); Albumin 3.4 g/dL (3.5-5.0); Alkaline Phosphatase 77 U/L (38-126); Anion Gap 11 mmol/L; Blood Urea Nitrogen 20 mg/dL (7-17); Carbon Dioxide 31 mmol/L (22-30); Chloride 100 mmol/L (98-107); Glucose 88 mg/dL (74-99); Magnesium 2.1 mg/dL (1.6-2.3); Potassium 3.8 mmol/L (3.5-5.1); Sodium 142 mmol/L (137-145); Total Bilirubin 0.3 mg/dL (0.2-1.3); Total Protein 5.2 g/dL (6.3-8.2)
[2017-11-07] MEDS ORDERED: Potassium Replacement Protocol 1 EACH MISC MISCELLANE PRN ×3 (06:50→16:32)
[2017-11-07] MEDS ORDERED: POTASSIUM CHLORIDE ER 20 MEQ TAB.ER PO SCH ×3 (07:00→17:00)
[2017-11-07] MEDS ORDERED: PANTOPRAZOLE 40 MG TABLET PO SCH (07:30)
[2017-11-07] MEDS: BUDESONIDE 0.5 MG/2 ML NEBU INHALATION SCH ×2 (08:30→20:22)
[2017-11-07] MEDS: FAMOTIDINE 20 MG TAB PO SCH (08:39)
[2017-11-07] MEDS: AMIODARONE 200 MG TAB PO SCH ×3 (08:39→21:02)
[2017-11-07] MEDS: GABAPENTIN 100 MG CAP PO SCH ×2 (08:40→21:02)
[2017-11-07] MEDS: FUROSEMIDE 10 MG/ML 4 ML VIAL IV SCH ×2 (08:40→21:02)
[2017-11-07] MEDS: FLUTICASONE 50MCG/SPRAY NASAL 16GM EA NOSTRIL SCH (08:40)
[2017-11-07] MEDS: METOPROLOL TARTRATE 25 MG TAB PO SCH ×2 (08:41→21:02)
[2017-11-07] MEDS: PSYLLIUM HUSK 100% 6 GM PACKET PO SCH ×2 (08:55→21:02)
[2017-11-07] MEDS: LISINOPRIL 10 MG TAB PO SCH (09:58)
[2017-11-07] MEDS: HYDROCHLOROTHIAZIDE 25 MG TAB PO SCH (09:58)
--- NOTE | 2017-11-07 10:20 | P.PN ---
Subjective This is an 87-year-old female patient of Dr. Montoya with past medical history of chronic atrial fibrillation, mild intermittent asthma, hypertension, osteoporosis s/p vertebral stress fractures, osteoarthritis, patient stated that she was in her usual state of health about 2 weeks ago when she was placed on calcitonin nasal spray for acidosis treatment because of significant disease and vertebra fracture, and developed to have significant diarrhea and she had stopped that about a week ago, as well as fact she went to see her prior to her physician Dr. Montoya yesterday for a physical and the patient was doing fine patient came in to the emergency department at [facility] because she woke up in the morning and she was complaining of increased palpitation in her chest and she was feeling somewhat short of breath along with the heartburn that did not respond to Mylanta so EMS was called and the patient was brought to the hospital on drop to the hospital patient had an episode of V. tach that terminated on its own she was seen in the ER potassium was low at 3.4 she was replaced magnesium was normal, as of her presentation she was admitted to the hospital after she did receive 2 doses of beta celia and cardiology consultation as well as pulmonary consultation was obtained, patient was admitted to intensive care unit for observation for the next 24 hours because of recurrent V. tach. 11/07: Patient was evaluated today, she's had no further episodes of V. tach. She denies any chest pain or palpitations or shortness of breath. Potassium did improve to 3.8 today after supplementation. Vital signs remain stable, she is a little bradycardic with rate of 52. Echocardiogram is pending, per cardiology, if left ventricular systolic function is impaired Rythmol may need to be discontinued. Objective - Vital Signs Vital signs: Vital Signs Temp 98.4 F 11/07/17 04:00 Pulse 52 L 11/07/17 07:00 Resp 13 11/07/17 07:00 BP 109/54 11/07/17 07:00 Pulse Ox 92 L 11/07/17 07:00 Intake & Output 11/06/17 11/07/17 11/07/17 18:59 06:59 18:59 Intake Total 650 100 Output Total 600 3000 0 Balance 50 -2900 0 Weight 64.9 kg 63.8 kg Intake: Oral 650 100 Output: Urine 600 3000 0 Other: Voiding Method Bedside Commode Bedside Commode - Exam - Constitutional General appearance: average body habitus, no acute distress - EENT Eyes: anicteric sclerae, EOMI, PERRLA, no ptosis, no scleral icterus, normal appearance ENT: hearing grossly normal, NA/AT, no normal oropharynx, no thrush, no tonsillar exudates Ears: bilateral: normal - Neck Neck: no lymphadenopathy, normal ROM, no rigidity, no stridor, no thyromegaly Carotids: bilateral: upstroke normal Thyroid: bilateral: normal size - Respiratory Respiratory: bilateral: diminished, negative: dullness, rales, rhonchi, wheezing , prolonged expiration - Cardiovascular Rhythm: regular Heart sounds: normal: S1, S2 Abnormal Heart Sounds: systolic murmur, no S3 Gallop - Gastrointestinal General gastrointestinal: normal bowel sounds, soft, no splenomegaly, no tenderness, no umbilical hernia - Integumentary Integumentary: normal, normal turgor - Neurologic Neurologic: CNII-XII intact - Musculoskeletal Musculoskeletal: strength equal bilaterally - Psychiatric Psychiatric: A&O x's 3, appropriate affect, intact judgment & insight - Labs CBC & Chem 7: 11/07/17 05:29 11/07/17 05:29 Labs: Abnormal Lab Results - Last 24 Hours (Table) 11/06/17 11/07/17 11/07/17 Range/Units 11:22 05:29 05:29 PT 15.3 H (9.0-12.0) sec INR 1.7 H (<1.2) Carbon Dioxide 31 H (22-30) mmol/L BUN 20 H (7-17) mg/dL POC Glucose (mg/dL) 111 H (75-99) mg/dL Total Protein 5.2 L (6.3-8.2) g/dL Albumin 3.4 L (3.5-5.0) g/dL Assessment and Plan Plan: 1. Recurrent V. tach. Resolved thought to be due to electrolyte imbalance, echocardiogram is pending, continue patient on metoprolol 25 mg orally twice every day, cardiology on consult, continue to monitor the patients magnesium as well as potassium level 2. Paroxysmal atrial fibrillation currently in sinus rhythm continue patient on propafenone 225 mg orally 3 times every day as well as Coumadin keep INR between 2-3. 3. Hypertension and hypertensive cardiovascular disease. Continue patient on metoprolol 25 mg orally twice every day. 4. History of mild persistent asthma. Continue patient on singular 10 mg orally once every day as well as albuterol as needed, continue Pulmicort nebulization twice every day. 5. Hyperlipidemia. Continue patient on Lipitor 10 mg orally once every day. 6. GERD. Continue Protonix 40 mg orally once every day. 7. DVT prophylaxis. Continue Coumadin keep her INR 2-3. 8. GI prophylaxis. Continue patient on Protonix. 9. Osteoporosis. Start Miacalcin and try to get the patient on Prolia injection twice a year. 10. Full code. 11. Admitted to inpatient. Estimate length of stay 2 midnights. The above impression and plan of care have been discussed and directed by signing physician. Yadi Palencia nurse practitioner acting as scribe for signing physician.
[2017-11-07] MEDS: MULTIVITAMINS, THERA 1 EACH TAB PO SCH (11:45)
[2017-11-07] MEDS: CALCIUM CARB-VIT D 500MG-200UN 1 EACH TAB PO SCH (11:46)
--- NOTE | 2017-11-07 14:05 | ECHOF ---
Referral Reason:r/o CHF MEASUREMENTS -------- HEIGHT: 160.0 cm WEIGHT: 63.5 kg BP: 150/77 IVSd: 1.4 cm (0.6 - 1.1) LVIDd: 3.1 cm (3.9 - 5.3) LVPWd: 1.5 cm (0.6 - 1.1) IVSs: 2.0 cm LVIDs: 2.1 cm LVPWs: 1.6 cm LAESV Index (A-L): 34.43 ml/m Ao Diam: 3.4 cm (2.0 - 3.7) AV Cusp: 1.9 cm (1.5 - 2.6) LA Diam: 3.9 cm (2.7 - 3.8) MV EXCURSION: 20.824 mm (> 18.000) MV EF SLOPE: 60 mm/s (70 - 150) EPSS: 0.5 cm MV E Grady: 0.63 m/s MV DecT: 239 ms MV A [place]ady: 1.01 m/s MV E/A Ratio: 0.62 AR PHT: 510 ms RAP: 5.00 mmHg RVSP: 8.40 mmHg FINDINGS -------- Sinus rhythm. This was a technically good study. The left ventricular size is normal. There is moderate concentric left ventricular hypertrophy. O verall left ventricular systolic function is normal with, an EF between 55 - 60 %. The right ventricle is normal in size and function. LA is moderately dilated 34-39 ml/m2 The right atrium is normal in size. Aortic valve is trileaflet and is mildly thickened. There is mild aortic regurgitation. The mitral valve leaflets are mildly thickened. Mild mitral annular calcification present. Mild tricuspid regurgitation present. The right ventricular systolic pressure, as measured by Doppl er, is 8.40mmHg. Trace/mild (physiologic) pulmonic regurgitation. The aortic root size is normal. The pericardium is normal. CONCLUSIONS -------- 1. Sinus rhythm. 2. This was a technically good study. 3. The left ventricular size is normal. 4. There is moderate concentric left ventricular hypertrophy. 5. Overall left ventricular systolic function is normal with, an EF between 55 - 60 %. 6. The right ventricle is normal in size and function. 7. LA is moderately dilated 34-39 ml/m2 8. The right atrium is normal in size. 9. Aortic valve is trileaflet and is mildly thickened. 10. There is mild aortic regurgitation. 11. The mitral valve leaflets are mildly thickened. 12. Mild mitral annular calcification present. 13. Mild tricuspid regurgitation present. 14. The right ventricular systolic pressure, as measured by Doppler, is 8.40mmHg. 15. Trace/mild (physiologic) pulmonic regurgitation. 16. The aortic root size is normal. 17. The pericardium is normal. PROGRAM PROJECT MANAGER: Tata Dillon RDCS
[2017-11-07 14:30] VITALS: BMI 24.9
--- NOTE | 2017-11-07 15:36 | PN ---
PROGRESS NOTE DATE OF SERVICE: 11/07/2017 She has been hemodynamically more stable. She, however, had an episode of V. tachy for which she is being seen by Cardiology and has been on amiodarone. PHYSICAL EXAMINATION: Respiratory rate is 18, pulse rate of 56, temperature 96.8, blood pressure 117/57, O2 saturation on 2 L by nasal cannula is 97%. HEENT reveals pupils that are equal. Chest is clear. Cardiovascular system reveals an S1, S2. Abdomen is soft. There is no edema. IMPRESSION: 1. Severe asthma that is persistent, but well controlled on her controller medications including inhaled steroids, montelukast and anti-IgE treatment with Xolair. 2. Cardiac arrhythmia for which she is being seen by Cardiology and will defer to the expertise in managing that problem. 3. Medical debility. Increase her activity level. She may benefit from inpatient rehab. Depending on how she does, we shall make further changes to her care. MMREYNALDO / CRISN: [id number] /
[2017-11-07] MEDS: HYDROcodone/APAP 5-325MG 1 EACH TAB PO PRN (17:19)
[2017-11-07] MEDS ORDERED: WARFARIN 7.5 MG TAB PO SCH (18:00)
--- NOTE | 2017-11-07 19:57 | PN ---
PROGRESS NOTE DATE OF SERVICE: 11/07/2017. HISTORY: The patient was admitted with atrial fibrillation . was discontinued. The patient is currently maintaining normal sinus rhythm. She is lying comfortably in the bed. Her heart rate is 60 beats per minute. Blood pressure is 116/60, respirations are not labored. The patient had a few crackles at the bases. The patient's last potassium was 3.8, TSH is normal. ASSESSMENT AND PLAN: The patient came with paroxysmal atrial fibrillation. Echocardiogram showed overall normal systolic function. If she remains stable, she can be discharged home tomorrow. MMODL / IJN: [id number] /
[2017-11-07] MEDS ORDERED: DOCUSATE 100 MG CAP PO SCH (21:00)
[2017-11-07] MEDS: MONTELUKAST 10 MG TAB PO SCH (21:02)
[2017-11-07] MEDS: ATORVASTATIN 10 MG TAB PO SCH (21:02)
[2017-11-08] MEDS: LEVOTHYROXINE 50 MCG TAB PO SCH (06:16)
[2017-11-08] MEDS: FAMOTIDINE 20 MG TAB PO SCH (06:58)
[2017-11-08 07:03] LABS: INR 1.5 (<1.2); Prothrombin Time 14.2 sec (9.0-12.0)
[2017-11-08 08:14] LABS: ALT 24 U/L (9-52); AST 22 U/L (14-36); Albumin 3.8 g/dL (3.5-5.0); Alkaline Phosphatase 83 U/L (38-126); Anion Gap 12 mmol/L; Blood Urea Nitrogen 30 mg/dL (7-17); Calcium 9.4 mg/dL (8.4-10.2); Carbon Dioxide 30 mmol/L (22-30); Chloride 101 mmol/L (98-107); Glucose 80 mg/dL (74-99); Potassium 4.3 mmol/L (3.5-5.1); Sodium 143 mmol/L (137-145); Total Bilirubin 0.6 mg/dL (0.2-1.3); Total Protein 5.8 g/dL (6.3-8.2)
[2017-11-08] MEDS: LISINOPRIL 10 MG TAB PO SCH (08:29)
[2017-11-08] MEDS: HYDROCHLOROTHIAZIDE 25 MG TAB PO SCH (08:29)
[2017-11-08] MEDS: AMIODARONE 200 MG TAB PO SCH (08:29)
[2017-11-08] MEDS: METOPROLOL TARTRATE 25 MG TAB PO SCH (08:29)
[2017-11-08] MEDS: GABAPENTIN 100 MG CAP PO SCH (08:29)
[2017-11-08] MEDS: PSYLLIUM HUSK 100% 6 GM PACKET PO SCH (08:29)
[2017-11-08] MEDS: FLUTICASONE 50MCG/SPRAY NASAL 16GM EA NOSTRIL SCH (08:29)
[2017-11-08] MEDS: FUROSEMIDE 10 MG/ML 4 ML VIAL IV SCH (08:32)
[2017-11-08 08:43] LABS: Basophils % (A) 0 %; Eosinophils # (A) 0.1 k/uL (0-0.7); Eosinophils % (A) 2 %; HCT 40.5 % (34.0-46.0); HGB 13.6 gm/dL (11.4-16.0); Lymphocytes # (A) 1.8 k/uL (1.0-4.8); Lymphocytes % (A) 39 %; MCH 31.3 pg (25.0-35.0); MCHC 33.6 g/dL (31.0-37.0); MCV 93.2 fL (80.0-100.0); Mean Platelet Volume 8.1; Monocytes # (A) 0.3 k/uL (0-1.0); Monocytes % (A) 7 %; Neutrophils # (A) 2.3 k/uL (1.3-7.7); Neutrophils % (A) 49 %; Platelet Count 200 k/uL (150-450); RBC 4.34 m/uL (3.80-5.40); RDW 12.5 % (11.5-15.5); WBC 4.6 k/uL (3.8-10.6)
[2017-11-08] MEDS: BUDESONIDE 0.5 MG/2 ML NEBU INHALATION SCH (09:07)
[2017-11-08] MEDS: HYDROcodone/APAP 5-325MG 1 EACH TAB PO PRN (09:21)
[2017-11-08 09:29] VITALS: BP 118/60; PULSE 56; RESP 18; TEMP 97.8
--- NOTE | 2017-11-08 10:08 | P.DS ---
Providers Date of admission: 11/06/17 08:43 Attending physician: Sai Overton Consults: 11/06/17 08:43 Consult Physician Stat Consulting Provider: Cj Xiong Consult Reason/Comments: Atrial fibrillation with RVR, congestive heart failure, V. tach Do you want consulting provider notified?: Yes Consult Physician Stat Consulting Provider: Sabrina Gonzalez Consult Reason/Comments: For ICU care Do you want consulting provider notified?: Yes Primary care physician: Justin Montoya [facility] Course: This is an 87-year-old female patient of Dr. Montoya with past medical history of chronic atrial fibrillation, mild intermittent asthma, hypertension, osteoporosis s/p vertebral stress fractures, osteoarthritis, patient stated that she was in her usual state of health about 2 weeks ago when she was placed on calcitonin nasal spray for acidosis treatment because of significant disease and vertebra fracture, and developed to have significant diarrhea and she had stopped that about a week ago, as well as fact she went to see her prior to her physician Dr. Montoya yesterday for a physical and the patient was doing fine patient came in to the emergency department at [facility] because she woke up in the morning and she was complaining of increased palpitation in her chest and she was feeling somewhat short of breath along with the heartburn that did not respond to Mylanta so EMS was called and the patient was brought to the hospital on drop to the hospital patient had an episode of V. tach that terminated on its own she was seen in the ER potassium was low at 3.4 she was replaced magnesium was normal, as of her presentation she was admitted to the hospital after she did receive 2 doses of beta celia and cardiology consultation as well as pulmonary consultation was obtained, patient was admitted to intensive care unit for observation for the next 24 hours because of recurrent V. tach. 11/07: Patient was evaluated today, she's had no further episodes of V. tach. She denies any chest pain or palpitations or shortness of breath. Potassium did improve to 3.8 today after supplementation. Vital signs remain stable, she is a little bradycardic with rate of 52. Echocardiogram is pending, per cardiology, if left ventricular systolic function is impaired Rythmol may need to be discontinued. 11/08: Echocardiogram shows moderate left ventricular hypertrophy, left ventricular systolic function is normal, with an EF between 55-60%. Patient is cleared from a cardiology standpoint. She's had no further episodes of arrhythmias. Her potassium was replaced and is 4.3 today, magnesium 2.1. Vital signs remain stable blood pressure 130/60, heart rate 58, 97% on room air. She will be discharged home with home care and follow up with cardiology and Dr Montoya. Cardiology to clarify amiodarone and Rythmol before discharge. Discharge diagnoses 1. Recurrent V. tach. Resolved thought to be due to electrolyte imbalance. 2. Paroxysmal atrial fibrillation currently in sinus rhythm 3. Hypertension and hypertensive cardiovascular disease. 4. History of mild persistent asthma. 5. Hyperlipidemia. 6. GERD. 7. Osteoporosis. The above impression and plan of care have been discussed and directed by signing physician. Yadi Palencia nurse practitioner acting as scribe for signing physician. Patient Condition at Discharge: Good Plan - Discharge Summary Discharge Rx Participant: No New Discharge Prescriptions: New Amiodarone [Cordarone] 200 mg PO TID #90 tab Metoprolol Tartrate [Lopressor] 25 mg PO BID #60 tab Warfarin [Coumadin] 7.5 mg PO SUMOWETHSA@1800 tab Continue Quinapril HCl [Accupril] 10 mg PO DAILY OMALIZUMAB patients own [Xolair Patients Own] 150 mg SQ Q30D Atorvastatin Calcium [Lipitor] 10 mg PO DAILY Budesonide [Pulmicort Flexhaler] 2 puff INHALATION RT-BID Omeprazole [PriLOSEC] 40 mg PO AC-BRKFST Levothyroxine Sodium [Synthroid] 50 mcg PO DAILY Fluticasone Nasal [place] [Flonase Nasal [place]] 2 spr EA NOSTRIL DAILY Montelukast [Singulair] 10 mg PO DAILY Hydrochlorothiazide 25 mg PO DAILY Ergocalciferol [Vitamin D2 (DRISDOL)] 50,000 unit PO Q14D Diazepam [Valium] 2 mg PO BID PRN PRN Reason: Anxiety Psyllium Husk (with Sugar) [Metamucil Powder] 6 gm PO BID Multivitamins, Thera [Multivitamin (formulary)] 1 tab PO DAILY Famotidine [Pepcid] 20 mg PO DAILY Docusate [Colace] 100 mg PO DAILY Clindamycin HCl [Cleocin] 300 mg PO DIRECTED Calcium Carbonate/Vitamin D3 [Calcium 600-Vit D3 400 Tablet] 1 tab PO DAILY Levalbuterol Hfa Inhaler [Xopenex Hfa Inhaler] 1 puff INHALATION Q6HR PRN PRN Reason: Shortness Of Breath HYDROcodone/APAP 5-325MG [[place] 5-325] 1 tab PO Q6HR PRN PRN Reason: Pain Baclofen [Lioresal] 10 mg PO TID PRN PRN Reason: Muscle Spasm Gabapentin [Neurontin] 100 mg PO BID Changed Warfarin Sodium [Coumadin] 5 mg PO TUFR #0 Discontinued Propafenone HCl [Propafenone HCl ER] 225 mg PO TID Warfarin [Coumadin] 7.5 mg PO SUTUTHSA Discharge Medication List Atorvastatin Calcium [Lipitor] 10 mg PO DAILY 02/15/14 [History] Budesonide [Pulmicort Flexhaler] 2 puff INHALATION RT-BID 02/15/14 [History] Levothyroxine Sodium [Synthroid] 50 mcg PO DAILY 02/15/14 [History] OMALIZUMAB patients own [Xolair Patients Own] 150 mg SQ Q30D 02/15/14 [History] Omeprazole [PriLOSEC] 40 mg PO AC-BRKFST 02/15/14 [History] Quinapril HCl [Accupril] 10 mg PO DAILY 02/15/14 [History] Calcium Carbonate/Vitamin D3 [Calcium 600-Vit D3 400 Tablet] 1 tab PO DAILY [History] Clindamycin HCl [Cleocin] 300 mg PO DIRECTED 11/27/15 [History] Diazepam [Valium] 2 mg PO BID PRN 11/27/15 [History] Docusate [Colace] 100 mg PO DAILY 11/27/15 [History] Ergocalciferol [Vitamin D2 (DRISDOL)] 50,000 unit PO Q14D 11/27/15 [History] Famotidine [Pepcid] 20 mg PO DAILY 11/27/15 [History] Fluticasone Nasal [place] [Flonase Nasal [place]] 2 spr EA NOSTRIL DAILY 11/27/15 [ History] Hydrochlorothiazide 25 mg PO DAILY 11/27/15 [History] Montelukast [Singulair] 10 mg PO DAILY 11/27/15 [History] Multivitamins, Thera [Multivitamin (formulary)] 1 tab PO DAILY 11/27/15 [History ] Psyllium Husk (with Sugar) [Metamucil Powder] 6 gm PO BID 11/27/15 [History] Baclofen [Lioresal] 10 mg PO TID PRN 11/06/17 [History] Gabapentin [Neurontin] 100 mg PO BID 11/06/17 [History] HYDROcodone/APAP 5-325MG [[place] 5-325] 1 tab PO Q6HR PRN 11/06/17 [History] Levalbuterol Hfa Inhaler [Xopenex Hfa Inhaler] 1 puff INHALATION Q6HR PRN [History] Amiodarone [Cordarone] 200 mg PO TID #90 tab 11/08/17 [Rx] Metoprolol Tartrate [Lopressor] 25 mg PO BID #60 tab 11/08/17 [Rx] Warfarin Sodium [Coumadin] 5 mg PO TUFR #0 11/08/17 [Rx] Warfarin [Coumadin] 7.5 mg PO SUMOWETHSA@1800 tab 11/08/17 [Rx] Follow up Appointment(s)/Referral(s): Lita Garner MD [STAFF PHYSICIAN] - 1 Week (Please make appointment when office is open) Justin Montoya MD [Primary Care Provider] - 1-2 days (Please make appointment when office is open) Santiago Del Valle MD [STAFF PHYSICIAN] - 1-2 Days (Please make appointment when office is open) Patient Instructions/Handouts: A-fib (Atrial Fibrillation) (DC) Discharge Disposition: HOME WITH HOME HEALTH SERVICES
--- NOTE | 2017-11-08 12:55 | P.PN ---
Subjective Progress Note Date: 11/08/17 This is an 87-year-old female seen in consultation by Dr. VC Palm yesterday. Patient presented to the hospital with atrial fibrillation with rapid ventricular response, she has a history also of hypertension. She converted to normal sinus rhythm and continues to be in sinus rhythm at this time. We do have her on amiodarone which we need to monitor closely as she is also on Coumadin. We will continue amiodarone 200 mg one tablet by mouth 3 times a day for one week then decrease to twice a day. Continue current dose of beta celia which was added as well. We will make her a follow-up appointment to see Dr. Garner in the office post discharge. Patient feels well this morning, she had a mild episode where she felt a little lightheaded getting up earlier however this essentially subsided. Objective - Vital Signs Vital signs: Vital Signs Temp 97.8 F 11/08/17 08:00 Pulse 62 11/08/17 09:18 Resp 18 11/08/17 08:00 BP 118/60 11/08/17 08:00 Pulse Ox 95 11/08/17 09:10 Intake & Output 11/07/17 11/08/17 11/08/17 18:59 06:59 18:59 Intake Total 1100 Output Total 0 Balance 1100 Weight 63.8 kg 64.7 kg Intake: Oral 1100 Output: Urine 0 Other: Voiding Method Bedside Commode Bedside Commode # Voids 1 3 - Exam PHYSICAL EXAMINATION: HEENT: Head is atraumatic, normocephalic. Pupils equal, round. Neck is supple. There is no elevated jugular venous pressure. HEART EXAMINATION: Heart S1, S2 normal. No murmur or gallop heard. CHEST EXAMINATION: Lungs are clear to auscultation and precussion. No chest wall tenderness is noted on palpation or with deep breathing. ABDOMEN: Soft, nontender. Bowel sounds are heard. No organomegaly noted. EXTREMITIES: 2+ peripheral pulses with no evidence of peripheral edema and no calf tenderness noted. NEUROLOGIC patient is awake, alert and oriented -3. . - Labs CBC & Chem 7: 11/08/17 08:26 11/08/17 06:19 Labs: Abnormal Lab Results - Last 24 Hours (Table) 11/08/17 11/08/17 Range/Units 06: 06:19 PT 14.2 H (9.0-12.0) sec INR 1.5 H (<1.2) BUN 30 H (7-17) mg/dL Total Protein 5.8 L (6.3-8.2) g/dL Assessment and Plan Plan: Assessment and plan #1 paroxysmal atrial fibrillation, currently in normal sinus rhythm #2 hypertension Plan From cardiology's perspective, patient be able to be discharged home today. We will make her follow-up appointment to see Dr. Garner in the office post discharge. We will continue amiodarone 200 mg one tablet by mouth 3 times a day for one week then decrease to twice a day. Continue beta celia as well. Monitor INRs closely as the patient is now on amiodarone as well. DNP note has been reviewed, I agree with a documented findings and plan of care. Patient was seen and examined.
--- NOTE | 2017-11-08 13:58 | PN ---
PROGRESS NOTE DATE OF SERVICE: 11/08/17. She was seen on November2017. She has been hemodynamically stable. She is doing better overall and had been transferred out of the ICU. PHYSICAL EXAMINATION: Respiratory rate is 18, pulse rate of 56, temperature 97.8, O2 saturation on room air is 95%. Blood pressure 118/60. HEENT: Unremarkable. CHEST: Clear. Cardiovascular system is S1, S2. ABDOMEN: Soft. There is no pedal edema. IMPRESSION: At this time: 1. Atrial fibrillation with RVR. 2. Severe persistent asthma with good control. 3. Mild pulmonary fibrosis. Agree with discharge planning with close outpatient follow up. Increase her activity level. She was counseled regarding her condition. MMODL / IJN: [id number] /
--- NOTE | 2017-11-11 09:24 | CDI ---
Last Revision, June 2017 Documentation Clarification Form Date: 11/11/17 From: Ronit Khurram Misty Rich, [employer] Supervisor Hours-8:30 am & 5 pm M-F Admit Date: 11/06/2017 8:43:00 AM Patient Name: Indira Hagan Visit Number: [id number] Discharge Date: 11/08/17 ATTENTION: The Clinical Documentation Specialists (CDI) and [facility] Coding Staff appreciate your assistance in clarifying documentation. Please respond to the clarification below the line at the bottom and electronically sign. The CDI & [facility] Coding staff will review the response and follow-up if needed. Please note: Queries are made part of the Legal Health Record. If you have any questions, please contact the author of this message via ITS. Dr. Sabrina Gonzalez CXR showed chronic interstitial changes and fibrosis with new central vascular congestion and small bilateral effusions correlate for fluid overload or CHF. The patient was given IV metoprolol potassium replacement and IV Lasix and has been responding well. BNP: 111 Echocardiogram Results: Overall left ventricular systolic functoin is normal with , an EF between 55-60%. In your professional opinion, can you please clarify the acuity and type of CHF if known? Type Systolic Heart Failure Diastolic Heart Failure Systolic & Diastolic Heart Failure Acuity Acute Chronic Acute on Chronic Heart Failure Unable to Determine Other, please specify Please continue to document in your progress notes and discharge summary in order to capture severity of illness and risk of mortality. Include clinical findings that support your diagnosis. unable to determine MTDD
[2017-11-18] MEDS ORDERED: ERGOCALCIFEROL 50,000 UNIT CAP PO SCH (12:00)
== END 2017-11-08 13:53 | disposition home or self-care (01) | DRG 310 ==
LOC: EC 07:25 → 6ICU 08:43 → 6SEL 11-08 01:40
PROVIDERS: ADMIT Internal Medicine; ATTEND Internal Medicine
DX: I47.2 Ventricular tachycardia (principal); I11.0 Hypertensive heart disease with heart failure; H90.3 Sensorineural hearing loss, bilateral; I48.0 Paroxysmal atrial fibrillation; E78.5 Hyperlipidemia, unspecified; E87.6 Hypokalemia; G89.29 Other chronic pain; M48.44 Fatigue fracture of vertebra, thoracic region; M48.46XD Fatigue fracture of vertebra, lumbar region, subsequent encounter for fracture with routine healing; K21.9 Gastro-esophageal reflux disease without esophagitis; M81.0 Age-related osteoporosis without current pathological fracture; E89.0 Postprocedural hypothyroidism; M19.011 Primary osteoarthritis, right shoulder; M19.012 Primary osteoarthritis, left shoulder; J45.50 Severe persistent asthma, uncomplicated; Z79.2 Long term (current) use of antibiotics; Z79.01 Long term (current) use of anticoagulants; Z79.890 Hormone replacement therapy; Z79.51 Long term (current) use of inhaled steroids; Z79.899 Other long term (current) drug therapy; Z90.49 Acquired absence of other specified parts of digestive tract; Z90.710 Acquired absence of both cervix and uterus; Z87.891 Personal history of nicotine dependence; Z87.01 Personal history of pneumonia (recurrent); Z96.643 Presence of artificial hip joint, bilateral; Z98.42 Cataract extraction status, left eye; Z98.41 Cataract extraction status, right eye; Z88.4 Allergy status to anesthetic agent; Z91.011 Allergy to milk products; Z88.0 Allergy status to penicillin; Z88.8 Allergy status to other drugs, medicaments and biological substances; Z82.49 Family history of ischemic heart disease and other diseases of the circulatory system; Z82.0 Family history of epilepsy and other diseases of the nervous system; Z82.3 Family history of stroke; Z83.6 Family history of other diseases of the respiratory system; J84.10 Pulmonary fibrosis, unspecified; I50.9 Heart failure, unspecified
CPT/HCPCS: 36415; 71045; 80053; 82550; 82553; 83036; 83735; 83880; 84132; 84443; 84484; 85025; 85610; 85730; 93005; 93306; 94640; 94760; 96361; 96365; 96375; 99291

== ENCOUNTER → 2017-12-21 | Outpatient (CLI) | payer MEDICARE ==
--- NOTE | 2017-12-21 15:34 | BD ---
EXAMINATION TYPE: Axial Bone Density DATE OF EXAM: 12/21/2017 CLINICAL HISTORY: 87-year-old female age-related osteoporosis, postmenopausal screening Height: 59 Weight: 148 FRAX RISK QUESTIONS: Alcohol (3 or more units per day): no Family History (Parent hip fracture): no Glucocorticoids (More than 3mos): nasal sprays (Ex: prednisone, prednisolone, methylprednisolone, dexamethasone, and hydrocortisone). History of Fracture in Adulthood: t-Spine & Lumbar Spine Secondary Osteoporosis: 1. Type 1 Diabetic: no 2. Hyperthyroidism: no 3. Menopause before 45: hysterectomy 33/ovaries removed age 62 4. Malnutrition: no 5. Chronic liver disease: no Rheumatoid Arthritis: no Current Tobacco Use: no RISK FACTORS HISTORY OF: Spine Fracture: yes When: unsure... possibly since last DEXA scan here in 2009 Family History of Osteoporosis: unsure Active: somewhat Diet low in dairy products/other sources of calcium: no Postmenopausal woman: yes Take estrogen and/or progesterone medications: not now How lon years Lost more than 2 inches in height since high school: yes Frequent falls: balance bad Hyperparathyroidism: no Adrenal Insufficiency: no MEDICATIONS: Prednisone or other steroids: nasal sprays Thyroid Medications: yes Which medication: levothyroxine How Long: over 20 years Osteoporosis Medications: no Additional Medications: calcium & Vitamin D ; Amiodarone HCI, Lopressor, Prilosec, Accupril, Singular , Hydrochlorothiazide, Lipitor, Valium, Warfarin, Flonase, Pulmicort, Hydrocodone /Acetaminophen, Jasmin lofen, Xopenex Inhaler, Xolair injections, Pepcid OTC Additional History: thyroid removed; atrial fib EXAM MEASUREMENTS: Bone mineral densitometry was performed using the [employer] Search System. Bone mineral density as measured about the Lumbar spine is: ----- L1-L4(G/cm2): 1.070 T Score Values are as follows: ----- L2: -1.6 ----- L3: -0.4 ----- L4: -1.0 ----- L1-L4: -0.9 Bone mineral density has: decreased-8.7 % since study of: 2009 Suspect that endplate degenerative change artifactually decreases measured T score values. Bone mineral density about the L Wrist (g/cm2): 0.471 T Score values are as follows: -----Dist. R+U: -3.8 -----Radius 33%: -2.1 -----Radius total: -3.4 Bone mineral density : baseline IMPRESSION: Osteopenia (T Score between -2.5 and -1). There is slightly increased risk of fracture and the patient may be considered for treatment. Re-Screen 2-5 years. NOTE: T-SCORE=SD OF THE YOUNG ADULT MEAN.
--- NOTE | 2017-12-23 10:25 | MM ---
Reason for exam: screening (asymptomatic). Last mammogram was performed 1 year and 2 months ago. History: Patient is postmenopausal. Took estrogen for 24 years. Physical Findings: A clinical breast exam by your physician is recommended on an annual basis and results should be correlated with mammographic findings. MG Screening Mammo w CAD Bilateral CC and MLO view(s) were taken. Prior study comparison: October 15, 2016, bilateral MG 3d screening mammo w/cad. September 20, 2015, bilateral MG screening mammo w CAD. There are scattered fibroglandular densities. No suspicious abnormality. No significant changes when compared with prior studies. ASSESSMENT: Negative, BI-RAD 1 RECOMMENDATION: Routine screening mammogram of both breasts in 1 year.
== END ==
LOC: RADMAMWWP 13:31
PROVIDERS: ATTEND Internal Medicine Geriatric Medicine
DX: Z12.31 Encounter for screening mammogram for malignant neoplasm of breast (principal); M85.88 Other specified disorders of bone density and structure, other site
CPT/HCPCS: 77067; 77080

== ENCOUNTER → 2018-02-22 | Outpatient (CLI) | payer MEDICARE ==
--- NOTE | 2018-02-22 18:47 | CT ---
EXAMINATION TYPE: CT chest wo con DATE OF EXAM: 02/22/2018 COMPARISON: None HISTORY: Shortness of breath CT DLP: 371 mGycm, Automated exposure control for dose reduction was used. CONTRAST: None TECHNIQUE: Axial images were obtained at 5 mm thick sections. Reconstructed images are reviewed on t [employer] computer in the coronal plane. FINDINGS: Portion of the thyroid visualized is normal. There is a 0.4 cm nodule within the periphery of the right midlung. Series 4 image 23. Some pneumonit is changes in the anterior right middle lobe at that level. There is a 0.3 cm nodule within the periphery of the lingula. Series 4 image 29. There is a poorly visualized 0.7 cm density at the left diaphragm. This could be volume averaging. Se eran 4 image 41 There is 1.4 cm rounded density with lower central density measuring 30 Hounsfield units. This could be a cyst or lymph node. There is a node adjacent to the ascending thoracic aorta measuring 1.0 cm th ere appears to be some fluid adjacent to the ascending thoracic aorta. Some coronary artery calcification is noted. The ascending aorta diameter at the level of the main pulmonary artery is 3.5 cm. The main pulmonary artery diameter at the bifurcation is 2.[address] sections are obtained through the upper abdomen. Abdomen is essentially unremarkable. IMPRESSIONS: 1. There appears to be some fluid adjacent to the distal ascending thoracic aorta. Findings likely re present a small amount of fluid in the superior aortic recess, anterior and posterior locations. No e ndovascular leak is identified. However study is without contrast. Recommend repeat imaging with cont rast. Remainder of the thoracic aorta appears unremarkable. 2. Couple of tiny nodules present. Follow-up chest CT in 3 months is recommended to reevaluate this f inding. 3. Cystlike structure in the superior anterior mediastinum. Differential could include cyst or lymph node. Follow-up is recommended.
== END | disposition home or self-care (01) ==
LOC: RADCTMAIN 11:03
PROVIDERS: ATTEND Internal Medicine Pulmonary Disease
DX: J98.59 Other diseases of mediastinum, not elsewhere classified (principal); R91.8 Other nonspecific abnormal finding of lung field
CPT/HCPCS: 71250

== ENCOUNTER → 2018-03-12 | Outpatient (CLI) | payer MEDICARE ==
--- NOTE | 2018-03-12 17:22 | CT ---
EXAMINATION TYPE: CT chest w con DATE OF EXAM: 03/12/2018 COMPARISON: 02/22/2018 HISTORY: Abn CT of chest, aortic aneurysm CT DLP: 358.7 mGycm, Automated exposure control for dose reduction was used. CONTRAST: Performed injected with 100 mL of Isovue 300. TECHNIQUE: Axial images were obtained at 5 mm thick sections. Reconstructed images are reviewed on [employer] computer in the coronal plane. FINDINGS: Portion of the thyroid visualized is normal. There is a 0.5 cm spiculated density within the periphery of the right upper lobe. Series 4 image 24. This was present previously. Punctate 0.3 cm nodule in the lingula stable. Density about the left di aphragm appears slightly smaller than comparison 5 cm There is a 1.6 cm hypodense lesion within anterior superior mediastinum. This was present previously has enlarged slightly over the interval. The ascending aorta diameter at the level of the main pulmonary artery is 3.3 cm. The main pulmonary artery diameter at the bifurcation is 2.7 cm. Periaortic fluid adjacent to the ascending thoracic ao rta is again suspected appears stable. Limited CT sections are obtained through the upper abdomen. Abdomen is essentially unremarkable. IMPRESSIONS: 1. Enlarging superior mediastinal mass. 2. Stable right upper lobe, lingular, left lung base nodules
== END | disposition home or self-care (01) ==
LOC: RADCTMAIN 14:33
PROVIDERS: ATTEND Internal Medicine Pulmonary Disease
DX: J98.59 Other diseases of mediastinum, not elsewhere classified (principal); R91.8 Other nonspecific abnormal finding of lung field
CPT/HCPCS: 71260; Q9967

== ENCOUNTER → 2018-03-20 | Outpatient (CLI) | payer MEDICARE ==
--- NOTE | 2018-03-23 18:17 | PE ---
Nuclear medicine PET/CT HISTORY: Lung mass, initial Patient received 14.3 mCi F-18 FDG intravenously in delayed scanning was performed from the skull bas e to the mid thighs. Localization and attenuation correction CT scan was performed. Correlation to CT chest 03/12/2018 Neck and Chest: The small pulmonary nodules seen on prior CT are noted, right upper lobe lung nodule shows calcification on prior CT, nodules are somewhat less distinct. There is no mediastinal, axillar y, or hilar adenopathy. No pleural or pericardial effusion. No suspicious hypermetabolic uptake. Abdomen pelvis: No evident adrenal mass, no retroperitoneal adenopathy. Patient is post cholecystecto my. No suspicious hypermetabolic uptake. Calcification in the right renal pelvis is indeterminate. No free fluid. Artifact is present due to hip prostheses. Diverticular changes associated with the sigm oid colon. There is some uptake associated with the right colon which may be physiologic. Osseous structures show no suspicious hypermetabolic uptake. Degenerative disc changes and facet arth ropathy noted especially in the lumbar spine. Multilevel osteoporotic compression fractures are prese nt. IMPRESSION: Findings may be indicative of old granulomatous disease. Additional findings above, follo w-up as indicated.
== END | disposition home or self-care (01) ==
LOC: RADPETMAIN 13:28
PROVIDERS: ATTEND Internal Medicine Pulmonary Disease
DX: R91.8 Other nonspecific abnormal finding of lung field (principal)
CPT/HCPCS: 78815; A9552

== ENCOUNTER → 2018-12-28 | Outpatient (CLI) | payer MEDICARE ==
--- NOTE | 2018-12-30 10:09 | MM ---
Reason for exam: screening (asymptomatic). Last mammogram was performed 1 year ago. History: Patient is postmenopausal. Took estrogen for 24 years. Physical Findings: A clinical breast exam by your physician is recommended on an annual basis and results should be correlated with mammographic findings. MG 3D Screening Mammo W/Cad Bilateral CC and MLO view(s) were taken. Prior study comparison: December 21, 2017, bilateral MG screening mammo w CAD. October 15, 2016, bilateral MG 3d screening mammo w/cad. There are scattered fibroglandular densities. No significant changes when compared with prior studies. ASSESSMENT: Benign, BI-RAD 2 RECOMMENDATION: Routine screening mammogram of both breasts in 1 year.
== END | disposition home or self-care (01) ==
LOC: RADMAMWWP 14:47
PROVIDERS: ATTEND Internal Medicine Geriatric Medicine
DX: Z12.31 Encounter for screening mammogram for malignant neoplasm of breast (principal)
CPT/HCPCS: 77063; 77067

== ENCOUNTER → 2019-05-25 | Outpatient (CLI) | payer MEDICARE ==
--- NOTE | 2019-05-25 15:14 | CT ---
EXAMINATION TYPE: CT chest w con DATE OF EXAM: 05/25/2019 COMPARISON: Chest CT March 12, 2018. PET CT March 20, 2018 HISTORY: Lung nodule CT DLP: 495 mGycm. Automated Exposure Control for Dose Reduction was Utilized. TECHNIQUE: CT scan of the thorax is performed following with IV Contrast, patient injected with 100 mL of Isovue 300. FINDINGS: LUNGS: Linear scarring anteriorly right upper to mid lung axial image 21 is redemonstrated. There is persistent elevated right hemidiaphragm with right basilar linear scarring. There is stable 4 to 5 mm groundglass nodule right mid lung axial image 18. There is patchy left basilar linear scarring and/o r atelectasis. No new greater than 4 mm nodules or masses. No pleural effusion or pneumothorax is poly dent. MEDIASTINUM: There are no greater than 1 cm hilar or mediastinal lymph nodes. No pericardial effusi on is seen. Persistent cardiomegaly of moderate biatrial dilatation. Bovine type arch redemonstrated . In the anterior superior mediastinum immediately anterior to the SVC and posterior to the sternum t here is persistent 1.7 x 1.3 cm rim-enhancing low-density lesion favoring cystic mediastinal lesion a xial image 15 not significantly changed from prior studies. Adjacent pericardial recess fluid redemon strated near the root of aorta and main pulmonary artery. Other: Cholecystectomy changes are redemonstrated with mild central intrahepatic and extra hepatic bi liary dilatation again seen. Stable small splenule splenic hilum axial image 48. Partial visualizatio n of a suspected nonobstructing 4 mm right renal calculus axial image 52 corresponding to PET/CT axia l image 113. There is exaggerated thoracic kyphosis with moderate compression type fracture deformiti es at T9 and T10 level along with T12 and L1 levels now identified with some progression from prior s tudies noted. IMPRESSION: 1. Stable small nodule and mediastinal mass suspected cystic lesion with local mass effect. No new or enlarging masses identified. 2. Progression of multilevel compression type fractures lower thoracic spine and thoracolumbar juncti on from prior study.
== END | disposition home or self-care (01) ==
LOC: RADCTMAIN 13:16
PROVIDERS: ATTEND Internal Medicine Pulmonary Disease
DX: J98.59 Other diseases of mediastinum, not elsewhere classified (principal); R91.1 Solitary pulmonary nodule; S22.008A Other fracture of unspecified thoracic vertebra, initial encounter for closed fracture; S32.008A Other fracture of unspecified lumbar vertebra, initial encounter for closed fracture
CPT/HCPCS: 82565; 84520; 71260; 36415; Q9967

== ENCOUNTER → 2021-12-24 | Outpatient (CLI) | payer MEDICARE ==
--- NOTE | 2021-12-24 16:48 | US ---
EXAMINATION TYPE: US venous doppler duplex LE RT DATE OF EXAM: 12/24/2021 4:15 PM COMPARISON: NONE CLINICAL HISTORY: R22.41 Localized swelling, mass and lump, right lower limb. Pt states falling, land ing on right hip- right leg swelling ever since fall SIDE PERFORMED: Right TECHNIQUE: The lower extremity deep venous system is examined utilizing real time linear array sonog lily with graded compression, doppler sonography and color-flow sonography. VESSELS IMAGED: Common Femoral Vein Deep Femoral Vein Greater Saphenous Vein * Femoral Vein Popliteal Vein Small Saphenous Vein * Proximal Calf Veins (* superficial vessels) Right Leg: Negative for DVT, right PTV's not visualized due to edema Attempted to call [employer] at phone number given on order at time of exam, however no answer IMPRESSION: No evidence of deep vein thrombosis in the right leg.
== END | disposition home or self-care (01) ==
LOC: RADUSWWP 16:00
PROVIDERS: ATTEND Internal Medicine Geriatric Medicine
DX: R22.41 Localized swelling, mass and lump, right lower limb (principal)